=== PATIENT | female | born 1970 | race Caucasian/White ===

== ENCOUNTER 2018-05-26 08:43 | Emergency (ER) | payer OTHER ==
[2018-05-26 08:54] VITALS: BP 116/63; PULSE 62; TEMP 98.1; BMI 25.9
--- NOTE | 2018-05-26 09:51 | PDOC ---
History of Present Illness - General Chief Complaint: Lightheaded Stated Complaint: LIGHTHEADED Time Seen by Provider: 05/26/18 09:15 History Source: Patient - History of Present Illness Initial Comments: 05/26/18 09:46 48 Cuban-speaking femalew/ pmhx of anemia and thyroid disease presents with dizziness that started this morning. Pt states while she was driving, she suddenly as if everything was spinning and had to stop driving until the episode had passed. Since then she has been having dizzy spells on an off. She reports never experiencing symptoms like this before and denies taking anything for her dizziness. She has associated nausea, but no vomiting symptoms. Denies headache, vision changes, cardiac or lung disease, chest pain, sob, abd pain, urinary/bowel symptoms, leg weakness. She does admit to feel off balance while walking when she's dizzy, but otherwise has no problems with her gait. PMHx: Anemia, thyroid disease PSHx: C-s x4 FHx: Maternal grandmother- HTN Social: Denies tobacco, alcohol, rec drug use. 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 Denies recent travel. Lives at home with mother and children. Past History - Past Medical History Allergies/Adverse Reactions: Allergies Allergy/AdvReac Type Severity Reaction Status Date / Time No Known Allergies Allergy Verified 05/26/18 08:49 Home Medications: Ambulatory Orders Atenolol [Tenormin -] 25 mg PO DAILY 05/26/18 Ferrous Sulfate [Feosol] 325 mg PO DAILY 05/26/18 Furosemide [Lasix] 40 mg PO DAILY 05/26/18 Meclizine HCl [Antivert -] 25 mg PO DAILY #7 tablet 05/26/18 Propylthiouracil 50 mg PO DAILY 05/26/18 Asthma: No Cancer: No Cardiac Disorders: No COPD: No Diabetes: No HTN: No Seizures: No Thyroid Disease: No Other medical history: lmp 04/11 - Suicide/Smoking/Psychosocial Hx Smoking History: Never smoked Have you smoked in the past 12 months: No Hx Alcohol Use: No Drug/Substance Use Hx: No Hx Substance Use Treatment: No Review of Systems - Review of Systems Able to Perform ROS?: Yes Comments:: 05/26/18 09:50 [employer] phone used for Cuban. Is the patient limited Gibraltarian proficient: Yes *Physical Exam - Vital Signs Last Vital Signs Temp Pulse Resp BP Pulse Ox 98.1 F 62 16 116/63 99 05/26/18 08:49 05/26/18 08:49 05/26/18 08:49 05/26/18 08:49 05/26/18 08:49 ED Treatment Course - LABORATORY CBC & Chemistry Diagram: 05/26/18 10:35 05/26/18 11:54 Medical Decision Making - Medical Decision Making 48F w/ pmhx of anemia and thyroid disease presents with dizziness. 05/26/18 10:46 Dizziness; likely 2/2 positional vertigo vs. electrolyte imbalance vs. cardiac -VS stable. Neuro exam neg on PE. -Will do CBC/CMP to r/o metabolic abnormalities as cause of dizziness; will get EKG to r/o arrhythmia/cardiac causes -Meclizine and Reglan given for nausea and dizziness -IVf given for hydration 05/26/18 10:57 -Pt likely has positional vertigo as her symptoms of dizziness begin when standing and moving in different positions. She also does not have a significant history of cardiac or lung disease. Pt was reassessed and feels much better after given Meclizine and Reglan. IVf given. -U/A neg -CMP pending 05/26/18 12:29 -Pt feeling better w/ mild vertigo, room still spinning. Await CMP results -Sign out to Dr. Holt *DC/Admit/Observation/Transfer Diagnosis at time of Disposition: Vertigo - Discharge Dispostion Disposition: HOME Condition at time of disposition: Improved - Prescriptions Prescriptions: Meclizine HCl [Antivert -] 25 mg PO DAILY #7 tablet - Referrals Referrals: Mirna Le MD [Primary Care Provider] - - Patient Instructions Printed Discharge Instructions: DI for Vertigo Additional Instructions: Te vieron aqu hoy por mareos. Tus pruebas fueron normales. Parece que tienes vrtigo. Hay haylie receta para Meclizine. Puede tomarlo haylie vez al da cuando se sienta mareado. Por favor mary anne haylie andrei con ramirez mdico para haylie mayor evaluacin y manejo de dana sntomas. Regrese a la serjio de emergencias si se siente ms sarah, pierde el conocimiento, tiene dolor de zachary o si se presenta algn sntoma nuevo y preocupante. Li You were seen here today for dizziness. Your tests were normal. It seems like you have vertigo. There is a prescription for Meclizine. You can take it once a day when you feel dizzy. Please make an appointment with your doctor for further evaluation and management of your symptoms. Come back to the ED if you feel more dizzy, you lose consciousness, you have headache or if any new concerning symptom develops. Thank you Print Language: TOGOLESE - Post Discharge Activity
[2018-05-26 10:06] LABS: HCG,QUALITATIVE URINE Negative
--- NOTE | 2018-05-26 10:15 | PDOC ---
Attending Attestation - Resident Resident Name: Ivonne Richter - ED Attending Attestation I have performed the following: I have examined & evaluated the patient, The case was reviewed & discussed with the resident, I agree w/resident's findings & plan, Exceptions are as noted - HPI HPI: 05/26/18 10:45 This patient is a 48 year old nauruan-speaking female with PMHx of anemia (on iron) and thyroid disease presents with nausea and dizziness that started this morning. She states that her episode of dizziness began when she was driving and felt like everything was spinning. it is worse when she is walking around, but when she is at rest, she does not feel dzzy. She denies experiecing this before and denies taking anything for her dizziness. She reports associated nausea, but no vomiting symptoms. Denies loss of counsciousness, headache, vision changes, cardiac or lung disease, chest pain, sob, abd pain, urinary/bowel symptoms, leg weakness. No recent diarrhea, melena, bpr, dysuria, frequency. Surgical Hx: C-s x4 Family Hx: Maternal grandmother- HTN Social Hx: Denies tobacco, alcohol, rec drug use. 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 Denies recent travel. Lives at home with mother and children. - Physicial Exam PE: 05/26/18 10:43 GENERAL: The patient is awake, alert, and fully oriented, Nontoxic - in no acute distress. HEAD: Normocephalic, atraumatic. EYES: extraocular movements intact, sclera anicteric, conjunctiva clear. ENT: Normal voice, Moist mucous membranes. NECK: Normal range of motion, supple LUNGS: Breath sounds equal, clear to auscultation bilaterally. No wheezes, no rhonchi, no rales. HEART: Regular rate and rhythm, normal S1 and S2 without murmur, rub or gallop. ABDOMEN: Soft, nontender, No guarding, no rebound. . No CVA tenderness EXTREMITIES: Normal range of motion, no edema. PSYCH: Normal mood, normal affect. SKIN: Warm, Dry, normal turgor, NEURO: Mental status: The patient is oriented x3. Cranial nerves: Cranial nerves II through XII are intact Motor: The upper extremities are 5 over 5 in all muscle groups. The lower extremities are 5 over 5 in all muscle groups. Negative pronator drift Sensation: Sensation is intact to light touch throughout. romberg negative Cerebellar: Epxiwn-jopaeg-gcqj is normal in both upper extremities. Heel-knee- conley is normal in both lower extremities. rapid alternating movements are normal. Reflexes: 2+ and symmetric in the upper and lower extremities. Gait: - Medical Decision Making 05/26/18 10:09 48y F thyroid disease, anemia, prsenting with dizziness when she was driving, described as room spinning dizziness associated with nausea without associated cp, sob, palpitations, visio changes, focal weakness, numbness/tingling, dysarthria, fever/chills, neck pain, back pain, dysuria, frequency. Vertigo worsened with movement/abmulation and resolves with rest. suspect peripheral veritgo, neg neuro exam and no risk factors or clinical findings to suggest central vertigo will give meclizine, reglan will ck labs to r/o anemia,metabolic dernagement will reassess
[2018-05-26] MEDS ORDERED: METOCLOPRAMIDE HCL 10 MG TABLET (FP) PO ONE ×2 (10:16→10:26)
[2018-05-26] MEDS ORDERED: MECLIZINE HCL 25 MG TABLET (FP) PO ONE (10:16)
[2018-05-26] MEDS ORDERED: SODIUM CHLORIDE 1,000 ML IV STA (10:17)
[2018-05-26 10:19] LABS: URINE APPEARANCE CLEAR; URINE BILIRUBIN NEGATIVE (<2.0 mg/dL); URINE COLOR STRAW; URINE GLUCOSE (UA) NEGATIVE (NEGATIVE); URINE KETONE NEGATIVE (NEGATIVE); URINE LEUK ESTERASE NEGATIVE (NEGATIVE); URINE NITRITE NEGATIVE (NEGATIVE); URINE PROTEIN NEGATIVE (NEGATIVE); URINE UROBILINOGEN NEGATIVE mg/dL (0.2-1.0)
[2018-05-26] MEDS ORDERED: MECLIZINE HCL 25 MG TABLET (FP) ONE (10:26)
[2018-05-26 11:09] LABS: HEMATOCRIT 40.3 % (32.4-45.2); HEMOGLOBIN 12.8 GM/dL (10.7-15.3); MCH 24.9 pg (25.7-33.7); MCHC 31.7 g/dl (32.0-36.0); MEAN CELL VOLUME 78.4 fl (80-96); MEAN PLT VOLUME 9.6 fl (7.5-11.1); PLATELET COUNT 195 K/MM3 (134-434); RBC 5.14 M/mm3 (3.60-5.2); RDW 23.3 % (11.6-15.6); WHITE BLOOD COUNT 6.3 K/mm3 (4.0-10.0)
[2018-05-26 12:43] LABS: ALBUMIN 3.3 g/dl (3.4-5.0); ALK PHOS 133 U/L (45-117); ANION GAP 8 MMOL/L (8-16); BILIRUBIN,TOTAL 0.5 mg/dL (0.2-1); BLOOD UREA NITROGEN 17 mg/dL (7-18); CALCIUM 8.7 mg/dL (8.5-10.1); CHLORIDE 115 mmol/L (98-107); CO2 19 mmol/L (21-32); CREATININE 0.4 mg/dL (0.55-1.3); GLUCOSE,RANDOM 93 mg/dL (74-106); POTASSIUM 4.3 mmol/L (3.5-5.1); SGOT/AST 36 U/L (15-37); SGPT/ALT 34 U/L (13-61); SODIUM 142 mmol/L (136-145)
--- NOTE | 2018-05-26 13:35 | PDOC ---
*Physical Exam - Vital Signs Last Vital Signs Temp Pulse Resp BP Pulse Ox 98.1 F 62 16 116/63 99 05/26/18 08:49 05/26/18 08:49 05/26/18 08:49 05/26/18 08:49 05/26/18 08:49 ED Treatment Course - LABORATORY CBC & Chemistry Diagram: 05/26/18 10:35 05/26/18 11:54 - ADDITIONAL ORDERS Additional order review: Laboratory Results 05/26/18 05/26/18 05/26/18 11:54 10:35 09:17 Sodium 142 Cancelled Potassium 4.3 Cancelled Chloride 115 H Cancelled Carbon Dioxide 19 L Cancelled Anion Gap 8 Cancelled BUN 17 Cancelled Creatinine 0.4 L Cancelled Creat Clearance w eGFR > 60 Cancelled Random Glucose 93 Cancelled Calcium 8.7 Cancelled Total Bilirubin 0.5 Cancelled AST 36 Cancelled ALT 34 Cancelled Alkaline Phosphatase 133 H Cancelled Total Protein 6.0 L Cancelled Albumin 3.3 L Cancelled Urine Color Straw Urine Appearance Clear Urine pH 6.0 Ur Specific [place] 1.011 Urine Protein Negative Urine Glucose (UA) Negative Urine Ketones Negative Urine Blood Negative Urine Nitrite Negative Urine Bilirubin Negative Urine Urobilinogen Negative Ur Leukocyte Esterase Negative Urine HCG, Qual Negative 05/26/18 10:35 RBC 5.14 MCV 78.4 L MCHC 31.7 L RDW 23.3 H MPV 9.6 - Medications Given in the ED: ED Medications Discontinued Medications Generic Name Dose Route Start Last Admin Trade Name Freq PRN Reason Stop Dose Admin Sodium Chloride 1,000 mls @ 1,000 mls/hr 05/26/18 10:17 05/26/18 10:30 Normal Saline - IV 05/26/18 11:16 1,000 mls/hr ASDIR STA Administration Meclizine HCl 25 mg 05/26/18 10:16 05/26/18 10:30 Antivert - PO 05/26/18 10:17 25 mg ONCE ONE Administration Metoclopramide HCl 10 mg 05/26/18 10:16 05/26/18 10:30 Reglan - PO 05/26/18 10:17 10 mg ONCE ONE Administration Medical Decision Making - Medical Decision Making 05/26/18 13:34 48 Georgian-speaking femalew/ pmhx of anemia and thyroid disease presents with dizziness that started this morning. -most likely BPPV -Waiting for CMP 05/26/18 13:34 Alk phos elevated at 133. no abdominal pain/complaints. Labs wnl. *DC/Admit/Observation/Transfer Diagnosis at time of Disposition: Vertigo - Discharge Dispostion Disposition: HOME Condition at time of disposition: Improved Decision to Admit order: No - Prescriptions Prescriptions: Meclizine HCl [Antivert -] 25 mg PO DAILY #7 tablet - Referrals Referrals: Mirna Le MD [Primary Care Provider] - - Patient Instructions Printed Discharge Instructions: DI for Vertigo Additional Instructions: Te vieron aqu hoy por mareos. Tus pruebas fueron normales. Parece que tienes vrtigo. Hay haylie receta para Meclizine. Puede tomarlo haylie vez al da cuando se sienta mareado. Por favor mary anne haylie andrei con ramirez mdico para haylie mayor evaluacin y manejo de dana sntomas. Regrese a la serjio de emergencias si se siente ms sarah, pierde el conocimiento, tiene dolor de zachary o si se presenta algn sntoma nuevo y preocupante. Li You were seen here today for dizziness. Your tests were normal. It seems like you have vertigo. There is a prescription for Meclizine. You can take it once a day when you feel dizzy. Please make an appointment with your doctor for further evaluation and management of your symptoms. Come back to the ED if you feel more dizzy, you lose consciousness, you have headache or if any new concerning symptom develops. Thank you Print Language: SINHAL[place] - Post Discharge Activity
--- NOTE | 2018-05-27 12:49 | EKG ---
Test Reason : Blood Pressure : / mmHG Vent. Rate : 062 BPM Atrial Rate : 062 BPM P-R Int : 162 ms QRS Dur : 086 ms QT Int : 452 ms P-R-T Axes : -03 066 044 degrees QTc Int : 458 ms NORMAL SINUS RHYTHM NORMAL ECG NO PREVIOUS ECGS AVAILABLE Confirmed by BHAVANA MCCABE MD ([id number]) on 05/27/2018 12:48:29 PM Referred By: Confirmed By:BHAVANA MCCABE MD
== END 2018-05-26 14:29 | disposition home or self-care (01) ==
LOC: JER 08:43
PROC: 3E0337Z Introduction of Electrolytic and Water Balance Substance into Peripheral Vein, Percutaneous Approach (ICD-10-PCS; principal; 2018-05-26)
DX: R42 Dizziness and giddiness (principal); D64.9 Anemia, unspecified; E07.9 Disorder of thyroid, unspecified
CPT/HCPCS: 36415; 80053; 81003; 84703; 85027; 93005; 93010; 96360; 99284-25; J7030

== ENCOUNTER 2020-11-27 08:47 | Emergency (ER) | payer OTHER ==
[2020-11-27 09:05] VITALS: BP 104/65; PULSE 58; TEMP 99; BMI 31.2
== END 2020-11-27 09:53 | disposition home or self-care (01) ==
LOC: JER 08:47 → JERFT 08:47 → JER 09:53
DX: R59.9 Enlarged lymph nodes, unspecified (principal)
CPT/HCPCS: 99283-25

== ENCOUNTER 2022-12-28 07:06 | Emergency (ER) | payer OTHER ==
[2022-12-28 07:16] VITALS: BP 116/78; PULSE 61; RESP 18; TEMP 98; BMI 26.4
[2022-12-28] MEDS ORDERED: LIDOCAINE 5% TOPICAL PATCH TP ONE (07:59)
[2022-12-28] MEDS ORDERED: KETOROLAC TROMETHAMINE 30 MG/1 ML VIAL IM ONE (07:59)
[2022-12-28] MEDS ORDERED: LIDOCAINE 5% TOPICAL PATCH ONE (08:04)
[2022-12-28] MEDS ORDERED: KETOROLAC TROMETHAMINE 30 MG/1 ML VIAL ONE (08:04)
[2022-12-28] MEDS ORDERED: LIDOCAINE PATCH REMOVAL MC SCH (22:00)
== END 2022-12-28 09:14 | disposition home or self-care (01) ==
LOC: JER 07:06
PROC: 3E0233Z Introduction of Anti-inflammatory into Muscle, Percutaneous Approach (ICD-10-PCS; principal; 2022-12-28)
DX: S39.012A Strain of muscle, fascia and tendon of lower back, initial encounter (principal); M54.50 Low back pain, unspecified
CPT/HCPCS: 99284-25